=== PATIENT | male | born 1960 | race Caucasian/White ===

== ENCOUNTER 2019-10-29 14:18 | Outpatient (CLI) | payer BC, SELFPAY ==
--- NOTE | 2019-10-29 14:27 | XRR_ITS ---
PROCEDURE INFORMATION: Exam: XR Left Foot Complete Exam date and time: 10/29/2019 2:38 PM Age: 59 years old Clinical indication: Pain and injury or trauma; Fall; Initial encounter; Blunt trauma; Left; Injury date: 10/27/09; Patient HX: Fell out of deer stand, lateral aspect of foot pain; Additional info: Left foot pain TECHNIQUE: Imaging protocol: XR Left foot. Views: 3 or more views. COMPARISON: No relevant prior studies available. FINDINGS: Bones/joints: Normal. Soft tissues: Soft tissue swelling. XR/XR foot LT min 3V* [id number] IMPRESSION: No acute fracture.
== END 2019-10-29 14:19 | disposition home or self-care (01) ==
LOC: RAD 14:22
PROVIDERS: Visit Provider Chiropractor
DX: M79.672 Pain in left foot (principal)
CPT/HCPCS: 73630

== ENCOUNTER 2023-11-14 02:40 | Emergency (ER) | payer BC, SELFPAY ==
[2023-11-14 02:47] VITALS: BP 147/89; PULSE 80; RESP 18; TEMP 36.6; O2SAT 97; BMI 29.2
[2023-11-14 03:00] VITALS: BP 147/92; PULSE 79; RESP 18; O2SAT 95
[2023-11-14 03:03] LABS: Basophils % 0.3 %; Eosinophils # 0.1 10^3/uL (0.0-0.8); Hematocrit 45.6 % (37-53); Lymphocytes # 0.8 10^3/uL (0.8-4.8); Lymphocytes % 7.6 %; Mean Corpuscular HGB Conc 32.7 g/dL (30-55); Mean Corpuscular Hemoglobin 28.8 pg (27-33); Mean Corpuscular Volume 88.2 fl (82-101); Mean Platelet Volume 9.1 fL (7.4-10.4); Monocytes # 0.8 10^3/uL (0.2-0.9); Monocytes % 7.9 %; Neutrophils # 8.22 10^3/uL (1.8-7.7); Neutrophils % 82.9 %; Nucleated Red Blood Cells % 0 %; Platelet Count 219 10^3/cmm (157-399); Red Blood Count 5.17 10^6/uL (3.85-5.65); Red Cell Distribution Width 13.2 % (12.1-15.1); White Blood Count 9.91 10^3/uL (3.29-11.43)
--- NOTE | 2023-11-14 03:09 | CTR_ITS ---
PROCEDURE INFORMATION: Exam: CT Abdomen And Pelvis With Contrast Exam date and time: 11/14/2023 3:49 AM Age: 63 years old Clinical indication: Constipation and nausea and vomiting; Abdominal pain; Generalized; Prior surgery; Surgery date: 3-7 days post-operative; Surgery type: Umbilical hernia repair 11/11/2023. Patient HX: C/O worsening severe abd pain with n/v and constipation since umbilical hernia surgery on 11/11/2023. ; Additional info: Abd pain, vomiting post surgery (umb hernia) TECHNIQUE: Imaging protocol: Computed tomography of the abdomen and pelvis with contrast. Radiation optimization: All CT scans at this facility use at least one of these dose optimization techniques: automated exposure control; mA and/or kV adjustment per patient size (includes targeted exams where dose is matched to clinical indication); or iterative reconstruction. Contrast material: OMNI 350; Contrast volume: 100 ml; Contrast route: INTRAVENOUS (IV); COMPARISON: No relevant prior studies available. RADIATION DOSE METRICS: Total DLP (mGy-cm): 881.53 FINDINGS: Lungs: Bibasilar atelectasis. Liver: Normal appearance of the liver. Gallbladder and biliary ducts: No calcified stones or ductal dilation. Pancreas: No ductal dilation. Spleen: Unremarkable. Adrenal glands: Unremarkable. Kidneys and ureters: No hydronephrosis. Simple bilateral renal cysts. Stomach and bowel: The cecum, ascending, transverse, and descending colon are distended with gas fluid. The cecum measures up to 10 cm and the descending colon measures up to 5 cm. No definite transition point. There is some mild wall thickening in the sigmoid colon (series 5, image 42) as well as the transverse colon. Mild pericolonic fat stranding about the transverse colon. Appendix: No evidence of appendicitis. Intraperitoneal space: No free air. No significant fluid collection. Vasculature: Unremarkable. Lymph nodes: No enlarged lymph nodes. Urinary bladder: Unremarkable as visualized. Reproductive: Mild prostatomegaly. Bones/joints: Bilateral L5 pars defects with grade 1 anterolisthesis of L5 on S1. Soft tissues: Postsurgical changes in the anterior abdominal wall. CT/CT abdomen pelvis w con* [id number] IMPRESSION: 1. The majority of the colon is moderately distended with gas and fluid. No definite transition point. Findings may reflect a colonic ileus or developing obstruction. Continued radiographic follow-up is recommended. 2. Very mild inflammatory changes about the transverse colon may reflect nonspecific colitis or may be reactive from recent surgery. 3. Mild wall thickening in the sigmoid colon. Recommend correlation with nonemergent colonoscopy. COMMENTS: Consistent with the [employer]'s Incidental Findings Committee white paper (J Am Ronald Radiol 2018): Any incidental renal lesion less than 1 cm or classified as too small to characterize, or any incidental cystic renal lesion characterized as simple-appearing, is likely benign. No follow-up imaging is recommended for these lesions per consensus recommendations based on imaging criteria.
--- NOTE | 2023-11-14 03:12 | ED_ITS ---
Documented by User: Anibal Akhtar DO 11/14/23 05:16 HPI - Abdominal Pain 2 General: Chief Complaint: Abdominal Pain Stated Complaint: post surgury- cramp n/v constipation Time Seen by Provider: 11/14/23 02:50 History of Present Illness: 63-year-old male with an umbilical herni a repair surgery on Tuesday 3 days ago. He presents with increasing abdominal cramps and pain since that time. He has not been able to have a bowel movement. He vomited prior to arrival. He denies fever or significant cough. He has been wearing an abdominal binder. He has been taking milk of magnesia, MiraLAX, Colace without improvement. Related Data Home Medications Medication Instructions Recorded Confirmed hydrocodone 7.5 mg-acetaminophen 1 tab PO Q6H PRN Pain 11/14/23 11/14/23 325 mg tablet lisinopril 10 mg tablet 10 mg PO DAILY 11/14/23 11/14/23 ondansetron HCl 4 mg tablet 4 mg PO Q6H PRN Nausea And Vomiting 11/14/23 11/14/23 Allergies Allergy/AdvReac Type Severity Reaction Status Date / Time No Known Allergies Allergy Verified 11/14/23 02:51 PFSH ED 2 PFSH: Social History Smoking and tobacco/nicotine status: never used tobacco/nicotine Second hand smoke exposure: No Alcohol intake: current Alcohol intake frequency: holidays/special occasions only Substance/Drug Use: never Marital status: Physical Exam 2 Const: COMMON NORMALS: no acute distress GENERAL APPEARANCE: cooperative and ill appearing (Mildly); not frail appearing HENMT: COMMON NORMALS: normocephalic, atraumatic and Normal external nose present HEAD & SCALP: normocephalic and atraumatic FACE & SINUS: normal facial exam and face symmetric NOSE: Normal external nose present Eye: COMMON NORMALS: Equal, round and reactive pupils present and EOMs intact bilaterally PUPIL: Yes Equal, round and reactive pupils present Neck/C-Spine: GENERAL: Yes trachea midline Chest: CHEST: Yes Symmetrical chest wall rise Resp: COMMON NORMALS: normal respiratory effort, No retractions, No use of accessory muscles and clear to auscultation bilaterally AUSCULTATION: clear to auscultation bilaterally Cardio: COMMON NORMALS: regular rate and regular rhythm RATE: regular rate RHYTHM: regular rhythm GI: COMMON NORMALS: Soft to palpation AUSCULTATION: Yes Hypoactive bowel sounds present and Yes High-pitched bowel sounds present PALPATION: Yes Soft to palpation, Yes Tenderness to palpation present (GI) (Diffuse) and Yes Guarding due to palpation present (GI) Extremity: COMMON NORMALS: no pedal edema Neuro: FERDINAND COMA SCALE: document GCS findings [place] coma scale eye opening: Spontaneous Ferdinand coma scale verbal response: Orientated Ferdinand coma scale motor response: Obey commands Ferdinand coma scale total score: 15 S ENSORY EXAM: Yes extremities (intact) Psych: COMMON NORMALS: speech normal SPEECH: Yes normal speech Skin: COMMON NORMALS: no rashes or lesions noted GENERAL SKIN EXAM: no rashes or lesions noted Course 2 Vital Signs: Vital signs: Vital Signs Temperature 97.9 F 11/14/23 02:47 Pulse Rate 75 11/14/23 07:46 Respiratory Rate 18 11/14/23 07:46 Blood Pressure 121/72 11/14/23 07:46 Pulse Oximetry 92 11/14/23 07:46 Oxygen Delivery Me thod Room Air 11/14/23 07:46 Oxygen Flow Rate 2 11/14/23 05:12 MDM - Abdominal Pain Medical Decision Making Vitals are stable. Laboratory is not remarkable. CT of the abdomen pelvis shows a large bowel ileus. He is receiving milk and molasses enema plus laxative mixture orally. If appropriate output, he could be discharged versus observation for continued treatment as above. Lab Data 11/14/23 02:54 11/14/23 02:54 Labs/Radiology: Radiology Impressions Abdomen/Pelvis CT 11/14/23 03:09 IMPRESSION: 1. The majority of the colon is moderately distended with gas and fluid. No definite transition point. Findings may reflect a colonic ileus or developing obstruction. Continued radiographic follow-up is recommended. 2. Very mild inflammatory changes about the transverse colon may reflect nonspecific colitis or may be reactive from recent surgery. 3. Mild wall thickening in the sigmoid colon. Recommend correlation with nonemergent colonoscopy. COMMENTS: Consistent with the [place] [employer]'s Incidental Findings Committee white paper (J Am Ronald Radiol 2018): Any incidental renal lesion less than 1 cm or classified as too small to characterize, or any incidental cystic renal lesion characterized as simple-appearing, is likely benign. No follow-up imaging is recommended for these lesions per consensus recommendations based on imaging criteria. Abdomen X-Ray 11/14/23 06:36 IMPRESSION: Ongoing gaseous distension of the cecum and transverse colon without significant interval change. Laboratory Results WBC 9.91 10^3/uL (3.29-11.43) 11/14/23 02:54 RBC 5.17 10^6/uL (3.85-5.65) 11/14/23 02:54 Hgb 14.90 g/dL (11.27-16.99) 11/14/23 02:54 Hct 45.6 % (37-53) 11/14/23 02:54 MCV 88.2 fl (82-101) 11/14/23 02:54 MCH 28.8 pg (27-33) 11/14/23 02:54 MCHC 32.7 g/dL (30-55) 11/14/23 02:54 RDW 13.2 % (12.1-15.1) 11/14/23 02:54 Plt Count 219 10^3/cmm (157-399) 11/14/23 02:54 MPV 9.1 fL (7.4-10.4) 11/14/23 02:54 Neut % (Auto) 82.9 % 11/14/23 02:54 Lymph % (Auto) 7.6 % 11/14/23 02:54 Banner % (Auto) 7.9 % 11/14/23 02:54 Eos % (Auto) 1.0 % 11/14/23 02:54 Baso % (Auto) 0.3 % 11/14/23 02:54 Neut # (Auto) 8.22 10^3/uL (1.8-7.7) H 11/14/23 02:54 Lymph # (Auto) 0.8 10^3/uL (0.8-4.8) 11/14/23 02:54 Banner # (Auto) 0.8 10^3/uL (0.2-0.9) 11/14/23 02:54 Eos # (Auto) 0.1 10^3/uL (0.0-0.8) 11/14/23 02:54 Baso # (Auto) 0.0 10^3/uL (0.0-0.1) 11/14/23 02:54 Nucleated RBC % (auto) 0 % 11/14/23 02:54 Nucleated RBCs # 0.0 /100WBC 11/14/23 02:54 Sodium 139 mmol/L (136-145) 11/14/23 02:54 Potassium 4.1 mmol/L (3.5-5.1) 11/14/23 02:54 Chloride 100 mmol/L (98-107) 11/14/23 02:54 Carbon Dioxide 26 mmol/L (22-29) 11/14/23 02:54 Anion Gap 17.1 (5-19) 11/14/23 02:54 BUN 14 mg/dL (8-23) 11/14/23 02:54 Creatinine 1.2 mg/dL (0.7-1.2) 11/14/23 02:54 GFR Calculation 61.3 mL/min (90-130) L 11/14/23 02:54 Glucose 140 mg/dL (65-115) H 11/14/23 02:54 Calculated Osmolality 291 mOsm/kg (285-295) 11/14/23 02:54 Calcium 8.7 mg/dL (8.5-10.5) 11/14/23 02:54 Total Bilirubin 0.6 mg/dL (0.15-1.2) 11/14/23 02:54 AST 16 U/L (0-40) 11/14/23 02:54 ALT 13 U/L (0-41) 11/14/23 02:54 Alkaline Phosphatase 81 U/L (40-130) 11/14/23 02:54 C-Reactive Protein 28.5 mg/L (0.0-4.9) H 11/14/23 02:54 Total Protein 6.8 g/dL (6.6-8.7) 11/14/23 02:54 Albumin 4.2 g/dL (3.5-5.2) 11/14/23 02:54 Globulin 2.6 g/dL (1.3-4.6) 11/14/23 02:54 Lipase 20 U/L (13-60) 11/14/23 02:54 Urine Color Yellow (Yellow) 11/14/23 05:08 Urine Appearance Cloudy (CLEAR) A 11/14/23 05:08 Urine pH 8.0 (5-7) A 11/14/23 05:08 Ur Specific [place] 1.055 (1.005-1.030) H 11/14/23 05:08 Urine Protein Negative (Negative) 11/14/23 05:08 Urine Glucose (UA) Negative (Normal) 11/14/23 05:08 Urine Ketones 1+ (Negative) H 11/14/23 05:08 Urine Blood Negative (Negative) 11/14/23 05:08 Urine Nitrate Negative (Negative) 11/14/23 05:08 Urine Bilirubin Negative (Negative) 11/14/23 05:08 Urine Urobilinogen 1.0 mg/dL (Negative) 11/14/23 05:08 Ur Leukocyte Esterase Negative (Negative) 11/14/23 05:08 Urine RBC 0-2 /hpf (0-2) 11/14/23 05:08 Urine WBC 0-5 /hpf (0-5) 11/14/23 05:08 Ur Squamous Epith Cells 0-5 /hpf (0-5) 11/14/23 05:08 Amorphous Sediment Not Reportable 11/14/23 05:08 Urine Bacteria None seen /hpf (NONE) 11/14/23 05:08 Hyaline Casts 0-4 /lpf H 11/14/23 05:08 All radiology interpretation(s) finalized by discharge Discharge Plan Discharge Patient Disposition: Home Clinical Impression: Paralytic ileus of large intestine Condition: Stable Prescriptions: No Action ondansetron HCl 4 mg tablet 4 mg PO Q6H PRN (Reason: Nausea And Vomiting) hydrocodone-acetaminophen 7.5-325 mg tablet 1 tab PO Q6H PRN (Reason: Pain) lisinopril 10 mg tablet 10 mg PO DAILY Discharge Orders: Discharge ED (Routine); Ordered 11/14/23 Ordered By: De Fernandes Referrals: Humberto Ruggiero MD [Primary Care Provider] - 1-3 days Discharge Diet: Clear Liquid Discharge Activity: Increase activity as tolerated Patient Instructions: Ileus (ED), Opioid Safety, Pain Management Activity Restrictions/Additional Instructions: Thank you for choosing [facility] for your healthcare needs today. It is very important that you follow up as instructed or that you return to the Emergency Department should you have concerns or if your condition changes or worsens in any way. You were seen today with an ileus this is likely result of your recent surgery. Ileus is when your bowel is not functioning properly after anesthesia. Recommend clear liquid diet and advance as tolerated. If your symptoms worsen or are not improving return to the emergency room. Sign Out Sign Out Data: Patient Sign Out occurred on 11/14/23 at 06:08. Patient's care was discussed, and care was transferred from Anibal Akhtar DO to De Fernandes DO. Coding Level of Care Code ED Fish Hatchery Supervisor for Chg Fwd Documented by User: De Fernandes DO 11/14/23 12:39 HPI - Abdominal Pain 2 General: Chief Complaint: Abdominal Pain Stated Complaint: post surgury- cramp n/v constipation Time Seen by Provider: 11/14/23 02:50 Related Data Home Medications Medication Instructions Recorded Confirmed hydrocodone 7.5 mg-acetaminophen 1 tab PO Q6H PRN Pain 11/14/23 11/14/23 325 mg tablet lisinopril 10 mg tablet 10 mg PO DAILY 11/14/23 11/14/23 ondansetron HCl 4 mg tablet 4 mg PO Q6H PRN Nausea And Vomiting 11/14/23 11/14/23 Allergies Allergy/AdvReac Type Severity Reaction Status Date / Time No Known Allergies Allergy Verified 11/14/23 02:51 PFS ED 2 PFSH: Social History Smoking and tobacco/nicotine status: never used tobacco/nicotine Second hand smoke exposure: No Alcohol intake: current Alcohol intake frequency: holidays/special occasions only Substance/Drug Use: never Marital status: Physical Exam 2 Neuro: FERDINAND COMA SCALE: document GCS findings Ferdinand coma scale total score: 15 Course 2 Vital Signs: Vital signs: Vital Signs Temperature 97.9 F 11/14/23 02:47 Pulse Rate 75 11/14/23 07:46 Respiratory Rate 18 11/14/23 07:46 Blood Pressure 121/72 11/14/23 07:46 Pulse Oximetry 92 08/26/24 07:46 Oxygen Delivery Me thod Room Air 11/14/23 07:46 Oxygen Flow Rate 2 11/14/23 05:12 MDM - Abdominal Pain Medical Decision Making Vitals are stable. Laboratory is not remarkable. CT of the abdomen pelvis shows a large bowel ileus. He is receiving milk and molasses enema plus laxative mixture orally. If appropriate output, he could be discharged versus observation for continued treatment as above. Care assumed at change of shift. Monitored patient for time in the ER he had good results from the medications Dr. Akhtar had given and he is feeling better. Will discharge patient home clear liquid diet for 24 to 48 hours and recheck with primary care or any other symptoms. Change Medical Records I reviewed the patient's medical records. Lab Data I reviewed the patient's lab results. 11/14/23 02:54 11/14/23 02:54 Labs/Radiology: Radiology Impressions Abdomen/Pelvis CT 11/14/23 03:09 IMPRESSION: 1. The majority of the colon is moderately distended with gas and fluid. No definite transition point. Findings may reflect a colonic ileus or developing obstruction. Continued radiographic follow-up is recommended. 2. Very mild inflammatory changes about the transverse colon may reflect nonspecific colitis or may be reactive from recent surgery. 3. Mild wall thickening in the sigmoid colon. Recommend correlation with nonemergent colonoscopy. COMMENTS: Consistent with the [place] [employer]'s Incidental Findings Committee white paper (J Am Ronald Radiol 2018): Any incidental renal lesion less than 1 cm or classified as too small to characterize, or any incidental cystic renal lesion characterized as simple-appearing, is likely benign. No follow-up imaging is recommended for these lesions per consensus recommendations based on imaging criteria. Abdomen X-Ray 11/14/23 06:36 IMPRESSION: Ongoing gaseous distension of the cecum and transverse colon without significant interval change. Laboratory Results WBC 9.91 10^3/uL (3.29-11.43) 11/14/23 02:54 RBC 5.17 10^6/uL (3.85-5.65) 11/14/23 02:54 Hgb 14.90 g/dL (11.27-16.99) 11/14/23 02:54 Hct 45.6 % (37-53) 11/14/23 02:54 MCV 88.2 fl (82-101) 11/14/23 02:54 MCH 28.8 pg (27-33) 11/14/23 02:54 MCHC 32.7 g/dL (30-55) 11/14/23 02:54 RDW 13.2 % (12.1-15.1) 11/14/23 02:54 Plt Count 219 10^3/cmm (157-399) 11/14/23 02:54 MPV 9.1 fL (7.4-10.4) 11/14/23 02:54 Neut % (Auto) 82.9 % 11/14/23 02:54 Lymph % (Auto) 7.6 % 11/14/23 02:54 Banner % (Auto) 7.9 % 11/14/23 02:54 Eos % (Auto) 1.0 % 11/14/23 02:54 Baso % (Auto) 0.3 % 11/14/23 02:54 Neut # (Auto) 8.22 10^3/uL (1.8-7.7) H 11/14/23 02:54 Lymph # (Auto) 0.8 10^3/uL (0.8-4.8) 11/14/23 02:54 Banner # (Auto) 0.8 10^3/uL (0.2-0.9) 11/14/23 02:54 Eos # (Auto) 0.1 10^3/uL (0.0-0.8) 11/14/23 02:54 Baso # (Auto) 0.0 10^3/uL (0.0-0.1) 11/14/23 02:54 Nucleated RBC % (auto) 0 % 11/14/23 02:54 Nucleated RBCs # 0.0 /100WBC 11/14/23 02:54 Sodium 139 mmol/L (136-145) 11/14/23 02:54 Potassium 4.1 mmol/L (3.5-5.1) 11/14/23 02:54 Chloride 100 mmol/L (98-107) 11/14/23 02:54 Carbon Dioxide 26 mmol/L (22-29) 11/14/23 02:54 Anion Gap 17.1 (5-19) 11/14/23 02:54 BUN 14 mg/dL (8-23) 11/14/23 02:54 Creatinine 1.2 mg/dL (0.7-1.2) 11/14/23 02:54 GFR Calculation 61.3 mL/min (90-130) L 11/14/23 02:54 Glucose 140 mg/dL (65-115) H 11/14/23 02:54 Calculated Osmolality 291 mOsm/kg (285-295) 11/14/23 02:54 Calcium 8.7 mg/dL (8.5-10.5) 11/14/23 02:54 Total Bilirubin 0.6 mg/dL (0.15-1.2) 11/14/23 02:54 AST 16 U/L (0-40) 11/14/23 02:54 ALT 13 U/L (0-41) 11/14/23 02:54 Alkaline Phosphatase 81 U/L (40-130) 11/14/23 02:54 C-Reactive Protein 28.5 mg/L (0.0-4.9) H 11/14/23 02:54 Total Protein 6.8 g/dL (6.6-8.7) 11/14/23 02:54 Albumin 4.2 g/dL (3.5-5.2) 11/14/23 02:54 Globulin 2.6 g/dL (1.3-4.6) 11/14/23 02:54 Lipase 20 U/L (13-60) 11/14/23 02:54 Urine Color Yellow (Yellow) 11/14/23 05:08 Urine Appearance Cloudy (CLEAR) A 11/14/23 05:08 Urine pH 8.0 (5-7) A 11/14/23 05:08 Ur Specific [place] 1.055 (1.005-1.030) H 11/14/23 05:08 Urine Protein Negative (Negative) 11/14/23 05:08 Urine Glucose (UA) Negative (Normal) 11/14/23 05:08 Urine Ketones 1+ (Negative) H 11/14/23 05:08 Urine Blood Negative (Negative) 11/14/23 05:08 Urine Nitrate Negative (Negative) 11/14/23 05:08 Urine Bilirubin Negative (Negative) 11/14/23 05:08 Urine Urobilinogen 1.0 mg/dL (Negative) 11/14/23 05:08 Ur Leukocyte Esterase Negative (Negative) 11/14/23 05:08 Urine RBC 0-2 /hpf (0-2) 11/14/23 05:08 Urine WBC 0-5 /hpf (0-5) 11/14/23 05:08 Ur Squamous Epith Cells 0-5 /hpf (0-5) 11/14/23 05:08 Amorphous Sediment Not Reportable 11/14/23 05:08 Urine Bacteria None seen /hpf (NONE) 11/14/23 05:08 Hyaline Casts 0-4 /lpf H 11/14/23 05:08 Discharge Plan Discharge Patient Disposition: Home Clinical Impression: Paralytic ileus of large intestine Condition: Stable Prescriptions: No Action ondansetron HCl 4 mg tablet 4 mg PO Q6H PRN (Reason: Nausea And Vomiting) hydrocodone-acetaminophen 7.5-325 mg tablet 1 tab PO Q6H PRN (Reason: Pain) lisinopril 10 mg tablet 10 mg PO DAILY Discharge Orders: Discharge ED (Routine); Ordered 11/14/23 Ordered By: De Fernandes Referrals: Humberto Ruggiero MD [Primary Care Provider] - 1-3 days Discharge Diet: Clear Liquid Discharge Activity: Increase activity as tolerated Patient Instructions: Ileus (ED), Opioid Safety, Pain Management Activity Restrictions/Additional Instructions: Thank you for choosing [facility] for your healthcare needs today. It is very important that you follow up as instructed or that you return to the Emergency Department should you have concerns or if your condition changes or worsens in any way. You were seen today with an ileus this is likely result of your recent surgery. Ileus is when your bowel is not functioning properly after anesthesia. Recommend clear liquid diet and advance as tolerated. If your symptoms worsen or are not improving return to the emergency room. Sign Out Sign Out Data: Patient Sign Out occurred on 11/14/23 at 06:08. Patient's care was discussed, and care was transferred from Anibal Akhtar DO to De Fernandes DO. Coding Level of Care Code ED Fish Hatchery Supervisor for Cee Sheldon
[2023-11-14] MEDS: ondansetron 2 mg/ML SDV 2 mL 4 MG IVP ×2 (03:20→05:43)
[2023-11-14] MEDS: morphine 4 mg/mL SDV 1 mL IVP ×2 (03:22→04:13)
[2023-11-14 03:29] VITALS: O2SAT 82; O2SAT 97
[2023-11-14 03:29] LABS: Alanine Aminotransferase 13 U/L (0-41); Albumin Level 4.2 g/dL (3.5-5.2); Alkaline Phosphatase 81 U/L (40-130); Anion Gap 17.1 (5-19); Aspartate Amino Transferase 16 U/L (0-40); Blood Urea Nitrogen 14 mg/dL (8-23); C Reactive Protein 28.5 mg/L (0.0-4.9); Calcium 8.7 mg/dL (8.5-10.5); Carbon Dioxide 26 mmol/L (22-29); Chloride 100 mmol/L (98-107); Creatinine Clr Calc Pharmacy 75.1848; Globulin 2.6 g/dL (1.3-4.6); Glomerular Filtration Rate 61.3 mL/min (90-130); Glucose 140 mg/dL (65-115); Lipase 20 U/L (13-60); Osmolality Calculated 291 mOsm/kg (285-295); Potassium 4.1 mmol/L (3.5-5.1); Sodium 139 mmol/L (136-145); Total Bilirubin 0.6 mg/dL (0.15-1.2); Total Protein 6.8 g/dL (6.6-8.7)
[2023-11-14] MEDS: iohexol 350 mg/mL 500 mL Btl (per mL) IV (03:52)
[2023-11-14 04:17] VITALS: BP 144/89; PULSE 78; RESP 18; O2SAT 99
[2023-11-14] MEDS: mineral oil 30 mL UDC PO (04:58)
[2023-11-14] MEDS: lactulose oral liq 20 gm/30 mL UDC PO (04:59)
[2023-11-14] MEDS: magnesium hydroxide 30 mL UDC PO (04:59)
[2023-11-14 05:12] VITALS: BP 145/91; PULSE 77; RESP 18; O2SAT 98
[2023-11-14 05:12] LABS: Charge for UA Resulting for Rev
[2023-11-14 05:14] LABS: Bilirubin Urine Negative (Negative); Blood Urine Negative (Negative); Glucose Urine UA Negative (Normal); Ketones Urine 1+ (Negative); Leukocyte Esterase Urine Negative (Negative); Nitrate Urine Negative (Negative); Protein Urine Negative (Negative); Urine Appearance Cloudy (CLEAR); Urine Color Yellow (Yellow)
[2023-11-14 05:19] LABS: Bacteria Urine None Seen /hpf; Hyaline Casts Urine 0-4 /lpf; RBC Urine 0-2 /hpf (0-2); Squamous Epithelial Cell Urine 0-5 /hpf (0-5); WBC Urine 0-5 /hpf (0-5)
[2023-11-14 05:20] LABS: Specific Gravity, Urine 1.055 (1.005-1.030)
--- NOTE | 2023-11-14 06:36 | XRR_ITS ---
PROCEDURE INFORMATION: Exam: XR Abdomen Exam date and time: 11/14/2023 6:36 AM Age: 63 years old Clinical indication: Bloating and constipation; Prior surgery; Surgery date: 3-7 days post-operative; Surgery type: Umbilical hernia repair 11/11/2023; Patient HX: Check of air/fluid levels post bm after enema administration; Additional info: Post enema bm TECHNIQUE: Imaging protocol: Radiologic exam of the abdomen. Views: 2 Views. Upright and supine views. COMPARISON: CT abdomen pelvis w con* [id number] 11/14/2023 3:49 AM FINDINGS: Gastrointestinal tract: Ongoing gaseous distension of the cecum and transverse colon without significant interval change. Intraperitoneal space: Normal. No free air. Organs: Excreted contrast is seen within the urinary bladder. Bones/joints: Unremarkable for age. XR/XR abdomen min 2V [id number] IMPRESSION: Ongoing gaseous distension of the cecum and transverse colon without significant interval change.
[2023-11-14 07:46] VITALS: BP 121/72; PULSE 75; RESP 18; O2SAT 92
== END 2023-11-14 10:00 | disposition home or self-care (01) ==
PROVIDERS: Emergency Medicine; Emergency Provider Family Medicine; PCP Family Medicine
DX: K56.0 Paralytic ileus (principal)
CPT/HCPCS: 74019; 74177; 80053; 81003; 81015; 83690; 85025; 86140; 96374; 96375; 96376; 99285; J2270; J2405; Q9967